=== PATIENT | male | born 1985 | race Caucasian/White ===

== ENCOUNTER → 2019-07-23 | Outpatient (REF) ==
[~2019-07-23] MED LIST: BUPR300T34 PO; DEPA1TAB3 PO; KEFL500C17 PO; NAPR1TAB86 PO; TRAZ-252 PO; WELL100T PO; WELLTAB38 PO
== END ==
LOC: M LAB LCGH 10:30
PROVIDERS: ATTEND Physician Assistant
DX: L72.0 Epidermal cyst (principal)